=== PATIENT | female | born 1985 | race Two or more races ===

== ENCOUNTER 2024-09-22 12:45 | Inpatient (IN) | payer OTHER ==
[~2024-09-22] VITALS: Ht 149.9 cm; Wt 59.0 kg
[2024-09-22] MEDS ORDERED: PYRIDOXINE 50 MG (14:33)
[2024-09-22] MEDS ORDERED: IRON (14:33)
[2024-09-22] MEDS ORDERED: NORETHINDRONE (14:34)
[2024-09-22] MEDS ORDERED: FOLIC ACID 1MG (14:34)
[2024-09-22] MEDS ORDERED: DICY20TA (14:35)
[2024-09-22] MEDS ORDERED: SINGULAIR10 MG (14:35)
[2024-09-22] MEDS ORDERED: [UNRECOGNIZED DRUG - OTHER] (14:36)
[2024-09-22 15:08] LABS: RH POSITIVE
[2024-09-28] MEDS ORDERED: THROMBIN,HU/FIBRINOGEN/CALCIUM 10 ML SYRINGE TOP ONE (09:00)
[2024-09-28] MEDS ORDERED: CEFAZOLIN SODIUM 1,000 MG VIAL IV ONE (09:00)
[2024-09-28] MEDS ORDERED: POVIDONE-IODINE 118 ML BOTT TOP ONE (09:00)
[2024-09-28] MEDS ORDERED: LIDOCAINE HCL 1%/EPINEPHRINE 20ML VIAL IJ ONE (09:00)
[2024-09-28] MEDS ORDERED: BUPIVACAINE HCL 30 ML VIAL IJ ONE (09:00)
[2024-09-28] MEDS ORDERED: RINGERS SOLUTION,LACTATED 1,000 ML IV SCH (10:02)
[2024-09-28] MEDS ORDERED: DICY20TA PO (10:45)
[2024-09-28] MEDS ORDERED: IRON325 MG PO (10:45)
[2024-09-28] MEDS ORDERED: FOLIC ACID1 MG PO (10:45)
[2024-09-28] MEDS ORDERED: VITAMIN B-650 M1 PO (10:46)
[2024-09-28] MEDS ORDERED: DOLOGESIC 500-1 EACH (10:48)
[2024-09-28] MEDS ORDERED: BUTALB-CAFF-AC1 EACH PO (10:48)
[2024-09-28] MEDS ORDERED: NORETHINDRONE AC5 MG PO (10:49)
[2024-09-28] MEDS ORDERED: MORPHINE SULFATE 4 MG/ML VIAL IV ONE (10:50)
[2024-09-28 11:10] LABS: BASO % 0.6 % (0.1-1.2); EOS # 0.12 (0.04-0.54); EOS % 1.3 % (0.7-7.0); LYMPH # 1.96 (1.18-3.74); LYMPH % 21.7 % (19.3-53.1); MEAN PLATELET VOLUME 11.30 fl (9.4-12.4); MONO # 0.33 (0.24-0.82); MONO % 3.7 % (4.7-12.5); NEUT # 6.54 (1.56-6.13); NEUT % 72.4 % (34.0-71.1)
[2024-09-28] MEDS ORDERED: ACETAMINOPHEN 325 MG TABLET PO SCH (12:00)
[2024-09-28] MEDS ORDERED: ONDANSETRON HCL 2 MG/ML VIAL IV SCH (12:00)
[2024-09-28] MEDS ORDERED: GABAPENTIN 100 MG CAPSULE PO SCH (13:00)
[2024-09-28 15:01] VITALS: BP 137/78
[2024-09-28 15:32] LABS: BASO % 0.2 % (0.1-1.2); EOS # 0.00 (0.04-0.54); EOS % 0.0 % (0.7-7.0); LYMPH # 0.67 (1.18-3.74); LYMPH % 4.0 % (19.3-53.1); MONO # 0.31 (0.24-0.82); MONO % 1.9 % (4.7-12.5); NEUT # 15.60 (1.56-6.13); NEUT % 93.2 % (34.0-71.1)
[2024-09-28 15:55] LABS: BUN CREA RATIO 13.0 (7.0-25.0); CREATININE SERUM 0.64 mg/dL (0.55-1.02); GFR 102.78; GLUCOSE FASTING 107.0 mg/dL (65-100); OSMOLALITY SERUM 278.0 MOSM/KG (275-295)
[2024-09-28] MEDS ORDERED: TRAMADOL HCL 50 MG TABLET PO PRN (16:30)
[2024-09-28 18:49] VITALS: BP 140/78
[2024-09-28] MEDS ORDERED: MONTELUKAST SODIUM 10 MG TABLET PO SCH (21:00)
[2024-09-29] VITALS: BP 123/73
[2024-09-29 07:01] LABS: BASO % 0.3 % (0.1-1.2); EOS # 0.12 (0.04-0.54); EOS % 1.0 % (0.7-7.0); LYMPH # 2.59 (1.18-3.74); LYMPH % 22.2 % (19.3-53.1); MONO # 0.83 (0.24-0.82); MONO % 7.1 % (4.7-12.5); NEUT # 8.04 (1.56-6.13); NEUT % 69.1 % (34.0-71.1)
[2024-09-29 07:24] LABS: BUN CREA RATIO 11.0 (7.0-25.0); CREATININE SERUM 0.64 mg/dL (0.55-1.02); GFR 102.78; GLUCOSE FASTING 68.0 mg/dL (65-100); OSMOLALITY SERUM 278.0 MOSM/KG (275-295)
[2024-09-29 08:19] LABS: LYMPHOCYTE MAN 24.0 %; MONOCYTE MAN 5.0 %; NEUTROPHILS MAN 70.0 %
[2024-09-29 08:26] VITALS: BP 123/77
== END 2024-09-29 09:15 | disposition home or self-care (01) | DRG 743 ==
LOC: OB/GYN 09-28 09:20 → O/R 09-28 09:20 → OB/GYN 09-28 11:12
PROVIDERS: Student in an Organized Health Care Education/Training Program; Surgery; Urology; ADMIT Obstetrics & Gynecology Gynecology; ATTEND Obstetrics & Gynecology Gynecology
PROC: 0UT94ZZ Resection of Uterus, Percutaneous Endoscopic Approach (ICD-10-PCS; principal; 2024-09-28 13:30)
PROC: 0UT74ZZ Resection of Bilateral Fallopian Tubes, Percutaneous Endoscopic Approach (ICD-10-PCS; 2024-09-28 13:30)
PROC: 0T788DZ Dilation of Bilateral Ureters with Intraluminal Device, Via Natural or Artificial Opening Endoscopic (ICD-10-PCS; 2024-09-28 13:30)
DX: D25.1 Intramural leiomyoma of uterus (principal); N84.0 Polyp of corpus uteri; N72 Inflammatory disease of cervix uteri; N94.6 Dysmenorrhea, unspecified